=== PATIENT | female | born 1995 | race Caucasian/White ===

== ENCOUNTER 2018-10-07 20:23 | Emergency (ER) | payer BC, SELFPAY ==
[2018-10-07] MEDS ORDERED: Ondansetron ODT 8 MG TAB ONE (22:34)
--- NOTE | 2018-10-07 23:14 | CT ---
CT BRAIN WITHOT CONTRAST: 10/07/18 HISTORY: Injury, headache. FINDINGS: No evidence of infarct, hemorrhage, midline shift, or abnormal extra-axial fluid collections are seen . The ventricular size is normal and the basilar cisterns patent. The bony calvarium is intact. There is mucosal disease in the paranasal sinuses. IMPRESSION: No CT evidence of acute intracranial process. POS: [facility]
--- NOTE | 2018-10-07 23:25 | CT ---
CT CERVICAL SPINE WITHOUT IV CONTRAST 10/07/18 HISTORY: Injury, neck pain. FINDINGS/IMPRESSION: There is loss of cervical lordosis with reversal. No acute fracture, subluxation or facet malalignmen t is identified. POS: [facility]
== END 2018-10-07 23:44 | disposition home or self-care (01) ==
LOC: ERS 20:23
DX: S00.81XA Abrasion of other part of head, initial encounter (principal); F41.9 Anxiety disorder, unspecified; F31.9 Bipolar disorder, unspecified; F43.10 Post-traumatic stress disorder, unspecified; Z87.891 Personal history of nicotine dependence; Z79.899 Other long term (current) drug therapy; W01.198A Fall on same level from slipping, tripping and stumbling with subsequent striking against other object, initial encounter
CPT/HCPCS: 70450; 72125